=== PATIENT | male | born 1935 | race Caucasian/White ===

== ENCOUNTER → 2017-05-05 | Outpatient (CLI) | payer MEDICARE, BC ==
[~2017-05-05] MED LIST: FELO10TA PO; LOVA10TA PO; VISIPAQUE 270 MG/ML, 50ML BOTTLE ONE
== END | disposition home or self-care (01) ==
LOC: RAD 09:17
PROVIDERS: ATTEND Urology
DX: N13.8 Other obstructive and reflux uropathy (principal)
CPT/HCPCS: 50387; 50435; C1769; C2625; Q9966

== ENCOUNTER → 2017-06-24 | Outpatient (CLI) | payer MEDICARE, BC ==
[~2017-06-24] MED LIST changes: +LIDOCAINE 1%, 20ML ONE; -VISIPAQUE 270 MG/ML, 50ML BOTTLE ONE
== END | disposition home or self-care (01) ==
LOC: RAD 09:47 → EDSTATUS 10:00
PROVIDERS: ATTEND Urology
DX: N13.8 Other obstructive and reflux uropathy (principal); Z96.0 Presence of urogenital implants
CPT/HCPCS: 50387; 50435; C1769; C2625; J3490

== ENCOUNTER → 2017-07-02 | Day surgery (SDC) | payer MEDICARE, BC | LOC: RAD 12:53 | PROVIDERS: ATTEND Urology | DX: N13.5 Crossing vessel and stricture of ureter without hydronephrosis (principal); Z46.82 Encounter for fitting and adjustment of non-vascular catheter | CPT/HCPCS: 50435; C1769; C2625; J3490 ==

== ENCOUNTER 2017-11-04 11:51 | Day surgery (SDC) | payer MEDICARE, BC ==
[~2017-11-04 11:51] MED LIST changes: -LIDOCAINE 1%, 20ML ONE
[2017-11-04] MEDS ORDERED: VISIPAQUE 270 MG/ML, 50ML BOTTLE ONE (12:18)
== END 2017-11-04 17:00 ==
LOC: RAD 11:51
PROVIDERS: ATTEND Urology
DX: N13.8 Other obstructive and reflux uropathy (principal)
CPT/HCPCS: 50382; C1769; C2625; Q9966; 50435

== ENCOUNTER → 2017-12-23 | Outpatient (CLI) | payer MEDICARE, BC ==
[~2017-12-23] MED LIST changes: +VISIPAQUE 270 MG/ML, 50ML BOTTLE ONE
== END | disposition home or self-care (01) ==
LOC: EDSTATUS 12-13 10:00 → RAD 09:44
PROVIDERS: ATTEND Urology
DX: N13.5 Crossing vessel and stricture of ureter without hydronephrosis (principal); N13.8 Other obstructive and reflux uropathy
CPT/HCPCS: 50382; 50435; C1769; C2625; Q9966

== ENCOUNTER → 2018-05-13 | Outpatient (CLI) | payer MEDICARE, BC | END | disposition home or self-care (01) | LOC: RAD 09:51 | PROVIDERS: ATTEND Urology | DX: C67.9 Malignant neoplasm of bladder, unspecified (principal); N13.30 Unspecified hydronephrosis; N13.8 Other obstructive and reflux uropathy | CPT/HCPCS: 50387; 50435; C1769; C2625; Q9966 ==

== ENCOUNTER → 2018-07-14 | Outpatient (CLI) | payer MEDICARE, BC | END | disposition home or self-care (01) | LOC: RAD 10:00 | PROVIDERS: ATTEND Urology | DX: C67.9 Malignant neoplasm of bladder, unspecified (principal); N13.30 Unspecified hydronephrosis | CPT/HCPCS: 50387; 50435; C1769; C2625; Q9966 ==

== ENCOUNTER → 2018-09-13 | Outpatient (CLI) | payer MEDICARE, BC | END | disposition home or self-care (01) | LOC: RAD 11:46 → EDSTATUS 12:00 | PROVIDERS: ATTEND Urology | DX: C67.9 Malignant neoplasm of bladder, unspecified (principal); N13.30 Unspecified hydronephrosis | CPT/HCPCS: 50387; 75984; C1769; C2625; Q9966 ==

== ENCOUNTER 2018-11-10 12:20 | Outpatient (CLI) | payer MEDICARE, BC ==
[~2018-11-10 12:20] MED LIST changes: -VISIPAQUE 270 MG/ML, 50ML BOTTLE ONE
[2018-11-10] MEDS ORDERED: VISIPAQUE 270 MG/ML, 50ML BOTTLE ONE (13:00)
== END 2018-11-10 23:59 | disposition home or self-care (01) ==
LOC: RAD 12:20
PROVIDERS: ATTEND Urology
DX: C67.9 Malignant neoplasm of bladder, unspecified (principal); N13.30 Unspecified hydronephrosis; N13.8 Other obstructive and reflux uropathy
CPT/HCPCS: 50387; C1769; C2625; Q9966; 50435

== ENCOUNTER → 2019-01-02 | Outpatient (CLI) | payer MEDICARE, BC ==
[~2019-01-02] MED LIST changes: +VISIPAQUE 270 MG/ML, 50ML BOTTLE ONE
== END | disposition home or self-care (01) ==
LOC: RAD 11:25
PROVIDERS: ATTEND Urology
DX: C67.9 Malignant neoplasm of bladder, unspecified (principal)
CPT/HCPCS: 50435; C1769; C2625; Q9966

== ENCOUNTER → 2019-03-14 | Outpatient (CLI) | payer MEDICARE, BC ==
[~2019-03-14] MED LIST changes: -VISIPAQUE 270 MG/ML, 50ML BOTTLE ONE
== END | disposition home or self-care (01) ==
LOC: OUT 09:37 → RAD 09:37 → EDSTATUS 10:00
PROVIDERS: ATTEND Urology
DX: Z43.6 Encounter for attention to other artificial openings of urinary tract (principal); C67.9 Malignant neoplasm of bladder, unspecified; N13.30 Unspecified hydronephrosis
CPT/HCPCS: 50435; C1769; C2625; Q9966

== ENCOUNTER 2019-09-19 12:20 | Outpatient (CLI) | payer MEDICARE, BC ==
[2019-09-19] MEDS ORDERED: VISIPAQUE 270 MG/ML, 50ML BOTTLE ONE (13:20)
== END 2019-09-19 23:59 | disposition home or self-care (01) ==
LOC: RAD 12:20 → EDSTATUS 13:00 → RAD 23:59
PROVIDERS: ATTEND Urology
DX: C67.9 Malignant neoplasm of bladder, unspecified (principal); N13.8 Other obstructive and reflux uropathy; N19 Unspecified kidney failure
CPT/HCPCS: 50387; C1769; C2625; Q9966; 50435

== ENCOUNTER → 2019-11-22 | Outpatient (CLI) | payer MEDICARE, BC ==
[~2019-11-22] MED LIST changes: +VISIPAQUE 270 MG/ML, 50ML BOTTLE ONE
== END | disposition home or self-care (01) ==
LOC: RAD 11:31
PROVIDERS: ATTEND Urology
DX: N13.8 Other obstructive and reflux uropathy (principal); C67.9 Malignant neoplasm of bladder, unspecified
CPT/HCPCS: 50387; 75984; C1769; C2625; Q9966

== ENCOUNTER 2020-01-12 09:52 | Outpatient (CLI) | payer MEDICARE, BC ==
[~2020-01-12 09:52] MED LIST changes: -FELO10TA PO; +FELO10TA4 PO; -VISIPAQUE 270 MG/ML, 50ML BOTTLE ONE
[2020-01-12] MEDS ORDERED: VISIPAQUE 320MG/ML, 50ML BOTTLE ONE (10:30)
== END 2020-01-12 23:59 | disposition home or self-care (01) ==
LOC: RAD 09:52 → EDSTATUS 10:00 → RAD 23:59
PROVIDERS: ATTEND Urology
DX: C67.9 Malignant neoplasm of bladder, unspecified (principal); N13.8 Other obstructive and reflux uropathy
CPT/HCPCS: 50387; 50435; C2625; Q9967

== ENCOUNTER → 2020-03-28 | Outpatient (CLI) | payer MEDICARE, BC ==
[~2020-03-28] MED LIST changes: +VISIPAQUE 270 MG/ML, 50ML BOTTLE ONE
== END | disposition home or self-care (01) ==
LOC: RAD 10:33
PROVIDERS: ATTEND Urology
DX: Z46.6 Encounter for fitting and adjustment of urinary device (principal); C67.9 Malignant neoplasm of bladder, unspecified
CPT/HCPCS: 50387; C1769; C2625; Q9966

== ENCOUNTER 2020-05-21 09:33 | Outpatient (CLI) | payer MEDICARE, BC ==
[~2020-05-21 09:33] MED LIST changes: -VISIPAQUE 270 MG/ML, 50ML BOTTLE ONE
[2020-05-21] MEDS ORDERED: VISIPAQUE 270 MG/ML, 50ML BOTTLE ONE (10:18)
== END 2020-05-21 23:59 | disposition home or self-care (01) ==
LOC: RAD 09:33
PROVIDERS: ATTEND Urology
DX: Z46.6 Encounter for fitting and adjustment of urinary device (principal); C67.9 Malignant neoplasm of bladder, unspecified
CPT/HCPCS: 50387; C1769; C2625; Q9966; 50435

== ENCOUNTER 2020-07-18 09:50 | Day surgery (SDC) | payer MEDICARE, BC ==
[2020-07-18] MEDS ORDERED: VISIPAQUE 270 MG/ML, 50ML BOTTLE ONE (10:44)
== END 2020-07-18 23:59 | disposition home or self-care (01) ==
LOC: RAD 09:50
PROVIDERS: ATTEND Urology
DX: Z46.6 Encounter for fitting and adjustment of urinary device (principal); C67.9 Malignant neoplasm of bladder, unspecified; N13.8 Other obstructive and reflux uropathy
CPT/HCPCS: 50387; C1769; C2625; Q9966; 50435

== ENCOUNTER 2020-09-16 08:59 | Day surgery (SDC) | payer MEDICARE, BC | END 2020-09-16 23:59 | disposition home or self-care (01) | LOC: RAD 08:59 | PROVIDERS: ATTEND Urology | DX: Z43.6 Encounter for attention to other artificial openings of urinary tract (principal); N13.8 Other obstructive and reflux uropathy; C67.9 Malignant neoplasm of bladder, unspecified | CPT/HCPCS: 50387; 50435; C1769; C2625; 75984 ==

== ENCOUNTER 2020-11-11 11:35 | Outpatient (CLI) | payer MEDICARE, BC ==
[~2020-11-11 11:35] MED LIST changes: +VISIPAQUE 270 MG/ML, 50ML BOTTLE ONE
== END 2020-11-11 23:59 | disposition home or self-care (01) ==
LOC: RAD 11:35 → EDSTATUS 12:00 → RAD 23:59
PROVIDERS: ATTEND Urology
DX: Z43.6 Encounter for attention to other artificial openings of urinary tract (principal); N13.8 Other obstructive and reflux uropathy; C67.9 Malignant neoplasm of bladder, unspecified
CPT/HCPCS: 50387; 75984; Q9966

== ENCOUNTER → 2020-12-26 | Day surgery (SDC) | payer MEDICARE, BC | END | disposition home or self-care (01) | LOC: RAD 11:49 | PROVIDERS: ATTEND Urology | DX: Z46.6 Encounter for fitting and adjustment of urinary device (principal); N13.8 Other obstructive and reflux uropathy | CPT/HCPCS: 50387; 75984; C1769; C2625; Q9966 ==

== ENCOUNTER 2021-02-26 11:28 | Outpatient (CLI) | payer MEDICARE, BC ==
[~2021-02-26 11:28] MED LIST changes: -VISIPAQUE 270 MG/ML, 50ML BOTTLE ONE
[2021-02-26] MEDS ORDERED: VISIPAQUE 270 MG/ML, 50ML BOTTLE ONE (12:33)
== END 2021-02-26 23:59 | disposition home or self-care (01) ==
LOC: RAD 11:28 → EDSTATUS 12:00 → RAD 23:59
PROVIDERS: ATTEND Family Medicine
DX: N13.8 Other obstructive and reflux uropathy (principal); Z79.899 Other long term (current) drug therapy
CPT/HCPCS: 50387; C1769; C2625; Q9966; 75984

== ENCOUNTER 2021-04-23 09:37 | Day surgery (SDC) | payer MEDICARE, BC | END 2021-04-23 23:59 | disposition home or self-care (01) | LOC: RAD 09:37 | PROVIDERS: ATTEND Urology | DX: N13.8 Other obstructive and reflux uropathy (principal) | CPT/HCPCS: 50387; C1769; C2625; 50433 ==

== ENCOUNTER → 2021-07-30 | Outpatient (CLI) | payer MEDICARE, BC | END | disposition home or self-care (01) | LOC: RAD 06-27 10:41 → EDSTATUS 06-27 12:00 → RAD 06-27 23:59 | PROVIDERS: ATTEND Urology | DX: N13.8 Other obstructive and reflux uropathy (principal) | CPT/HCPCS: 50387; 75984; C1769; C2625; 50435 ==